=== PATIENT | female | born 1980 | race Caucasian/White ===

== ENCOUNTER → 2016-07-22 | Outpatient (CLI) | payer BC ==
[~2016-07-22] MED LIST: B-COTAB18 PO; CHOLCAP5 PO; PREN1TAB29 PO; PROM12.57 PO; RANI1TAB77
[2016-07-22 12:10] LABS: URINE APPEARANCE CLEAR (CLEAR); URINE BILIRUBIN NEG (NEG); URINE COLOR DK YELLOW; URINE EPITHELIAL CELL AUTO >30 /lpf (0-5); URINE NITRITE NEG (NEG); URINE PH 5.5 (4.5-7.5); URINE SPECIFIC GRAVITY 1.019 (1.000-1.030); UROBILINOGEN NEG (NEG)
[2016-07-22 12:13] LABS: MANUAL MICROSCOPIC REQUIRED? NO; REVIEW REQ? NO
[2016-07-22 12:24] LABS: HEMATOCRIT 30.4 % (37-47)
[2016-07-22 13:15] LABS: GTGD 50 Grams
== END | disposition home or self-care (01) ==
LOC: C.LAB1850 10:08
PROVIDERS: ATTEND Obstetrics & Gynecology
DX: Z34.83 Encounter for supervision of other normal pregnancy, third trimester (principal)

== ENCOUNTER → 2016-09-16 | Outpatient (CLI) | payer BC | END | disposition home or self-care (01) | LOC: C.LABSPEC 11:25 | PROVIDERS: ATTEND Obstetrics & Gynecology | DX: Z34.83 Encounter for supervision of other normal pregnancy, third trimester (principal) ==

== ENCOUNTER 2016-10-06 02:09 | Inpatient (IN) | payer BC ==
[~2016-10-06] VITALS: Ht 157.5 cm; Wt 68.5 kg
[~2016-10-06 02:09] MED LIST changes: -RANI1TAB77
[2016-10-06] MEDS ORDERED: LACTATED RINGER'S 1000ML 1,000 ML IV PRN (02:53)
[2016-10-06] MEDS ORDERED: LACTATED RINGER'S 1000ML 1,000 ML IV SCH (02:53)
[2016-10-06] MEDS ORDERED: RANI1TAB77 (02:56)
[2016-10-06 02:57] VITALS: Ht 157.5 cm; Wt 68.5 kg
[2016-10-06 03:24] LABS: HEMATOCRIT 33.3 % (37-47); MEAN CELL VOLUME 90.7 fL (80-100); MEAN CORPUSCULAR HEMOGLOBIN 30.2 pg (25-34); MEAN CORPUSCULAR HGB CONC 33.3 g/dl (32-36); PLATELET COUNT 161 K/uL (130-400); RED BLOOD COUNT 3.67 M/uL (4.2-5.4); WHITE BLOOD COUNT 7.86 K/uL (4.8-10.8)
[2016-10-06] MEDS ORDERED: CALCIUM CARBONATE 500 MG CHEWABLE ONE (03:43)
[2016-10-06] MEDS ORDERED: CALCIUM CARBONATE 500 MG CHEWABLE PO PRN (03:45)
[2016-10-06] MEDS ORDERED: OXYTOCIN 30 UNITS/500ML NSS IV ONE (06:30)
[2016-10-06] MEDS ORDERED: BENZOCAINE 20% AER SPR 82.5 GM CAN EXT PRN (07:00)
[2016-10-06] MEDS ORDERED: ACETAMINOPHEN/CODEINE 300/30MG TAB PO PRN (07:00)
[2016-10-06] MEDS ORDERED: RANITIDINE HCL 150 MG TAB PO PRN (07:00)
[2016-10-06] MEDS ORDERED: OXYTOCIN 30 UNITS/500ML NSS IV PRN (07:00)
[2016-10-06] MEDS ORDERED: HYDROCORTISONE ACETATE 25 MG SUPP PR PRN (07:00)
[2016-10-06] MEDS ORDERED: OXYTOCIN INJ 20 UNITS in LACTATED RINGER'S 1000ML 1,000 ML IV SCH (07:00)
[2016-10-06] MEDS ORDERED: SUPERCREAM 0.870 % 15GM JAR EXT PRN (07:00)
[2016-10-06] MEDS ORDERED: LANOLIN OINT EXT PRN ×2 (07:00)
[2016-10-06] MEDS ORDERED: DIPHTHERIA/TETANUS/PERTUSSIS 0.5 ML SYR/VIAL IM. ONE (07:00)
--- NOTE | 2016-10-06 08:03 | DELIVERY SUMMARY ---
DATE OF OPERATION: 10/06/2016 The patient dilated to complete and pushed to deliver a viable male with Apgars 8 and 9, via over small second degree perineal laceration. Mouth and nose bulb suctioned at the perineum. Shoulders and body delivered with ease. vigorous and crying at . Placenta delivered spontaneously and intact 3-vessel cord. Hemostasis achieved with dilute Pitocin and uterine massage. Cervix and sulci intact. Laceration repaired, after 1% local lidocaine anesthesia, in the usual fashion using 3-0 Vicryl. Mother and baby stable in recovery. EBL 300 mL. I attest to the content of the Intraoperative Record and any orders documented therein. Any exceptions are noted below. MTDD
[2016-10-06] MEDS: IBUPROFEN 600 MG TAB PO PRN ×3 (08:08→20:31)
[2016-10-06] MEDS: DOCUSATE SODIUM 100 MG CAP PO SCH ×2 (08:10→20:31)
[2016-10-06 09:35] VITALS: BP 107/69; PULSE 95; TEMP 36.8; O2SAT 98
[2016-10-06 11:10] VITALS: BP 99/65; PULSE 88; TEMP 36.6; O2SAT 97
[2016-10-06 15:30] VITALS: BP 119/72; PULSE 71; TEMP 36.6; O2SAT 99
[2016-10-06 20:30] VITALS: BP 98/64; PULSE 81; TEMP 36.4
[2016-10-07 00:05] VITALS: BP 99/61; PULSE 88; TEMP 36.8; O2SAT 99
[2016-10-07] MEDS: ACETAMINOPHEN 325 MG TAB PO PRN ×2 (00:12→15:26)
[2016-10-07 04:05] VITALS: BP 101/71; PULSE 98; TEMP 36.8
--- NOTE | 2016-10-07 07:05 | Progress Note ---
Subjective Oct 07, 2016. Subjective conversation w/ patient, physical exam, lab review Ambulation: ambulating normally Passing Gas: Yes Diet Tolerance: Regular Diet Lochia: Moderate Feeding Type: Bottle Feeding Pain: 6/10, improves with medication Comment: Patient was seen at the bedside. No acute event overnight. Review of Systems Constitutional: No fever Respiratory: No cough, No shortness of breath Cardiac: No chest pain Breast: No breast lump Abdomen: No nausea, No pain, No vomiting Female : No dysuria Denies headache Objective Vital Signs Date Time Temp Pulse Resp B/P Pulse Ox O2 Delivery O2 Flow Rate FiO2 10/07/16 04:05 36.8 98 16 101/71 10/07/16 00:05 36.8 88 18 99/61 Room Air 10/07/16 00:05 99 Room Air 10/06/16 20:30 36.4 81 20 98/64 Room Air 10/06/16 15:30 99 Room Air 10/06/16 15:30 36.6 71 18 119/72 99 Room Air 10/06/16 11:10 36.6 88 16 99/65 97 Room Air 10/06/16 09:35 98 Room Air 10/06/16 09:35 36.8 95 18 107/69 98 Room Air Physical Exam General Appearance: WELL-APPEARING, WD/WN Respiratory/Chest: chest non-tender, lungs clear, normal breath sounds Cardiovascular: regular rate, rhythm Abdomen: normal bowel sounds, soft, + tenderness (appropriate for ) Fundus: Firm, Relation to Umbilicus (2cm below) Extremities: no pedal edema, + calf tenderness (on the L) Medications Current Inpatient Medications Medications (Trade) Dose Ordered Sig/Brandin Route Start Time Stop Time Status Last Admin Dose Admin Calcium Carbonate (Tums Chew Tab) 500 mg Q6 PRN PO 10/06/16 03:45 11/05/16 03:44 10/06/16 15:23 500 MG Ranitidine HCl (zANTac TAB) 150 mg DAILY PRN PO 10/06/16 07:00 11/05/16 06:59 Oxytocin (Pitocin IV) 30 units UD PRN IV 10/06/16 07:00 11/05/16 06:59 Benzocaine (Dermoplast Aero Spr) 1 appln PRN PRN EXT 10/06/16 07:00 11/05/16 06:59 10/06/16 13:39 82.5 APPLN Cocaine HCl (Supercream 0.870% Cr) BID PRN EXT 10/06/16 07:00 10/20/16 06:59 10/07/16 00:12 15 GM Hydrocortisone Acetate (Anusol Hc Supp) 25 mg BID PRN CO 10/06/16 07:00 11/05/16 06:59 Lanolin (Lanolin Oint) PRN PRN EXT 10/06/16 07:00 11/05/16 06:59 Ibuprofen (Motrin Tab) 600 mg Q4H PRN PO 10/06/16 07:00 11/05/16 06:59 10/06/16 20:31 600 MG Acetaminophen (Tylenol Tab) 650 mg Q6H PRN PO 10/06/16 07:00 11/05/16 06:59 10/07/16 00:12 650 MG Acetaminophen/ Codeine Phosphate (Tylenol w/ Codeine #3 Tab) 1 tab Q4H PRN PO 10/06/16 07:00 11/05/16 06:59 Acetaminophen/ Codeine Phosphate (Tylenol w/ Codeine #3 Tab) 2 tab Q4H PRN PO 10/06/16 07:00 11/05/16 06:59 Docusate Sodium (coLACE CAP) 100 mg BID PO 10/06/16 08:00 11/05/16 07:59 10/06/16 20:31 100 MG Assessment and Plan Problem List Medical Problems: (1) Closed head injury Status: Acute (2) Concussion Status: Acute (3) Concussion Status: Acute (4) Hyperemesis gravidarum Status: Acute (5) Morning sickness Status: Acute (6) Vomiting Status: Acute Day#: 1 Continue Routine Care: A/P: This is a 36 y/o female, , s/p normal vaginal delivery. She is ambulating and clinically stable. Plan: - Vitals signs are reviewed and WNL (Tmax 36.8 ) - Hgb is --> 11.1 (10/06) - Blood type O+, GBS neg, Rubella Immune - Routine care - Encourage ambulation, monitor and control pain with medication as needed , continue with regular diet as tolerated and monitor lochia - Stool softeners and sitz bath recommended - Encourage breast feeding and educate about breast feeding Resident Physician Supervision Note: I interviewed and examined the patient. Discussed with Dr. Schneider and agree with findings and plan as documented in the note. Any exceptions or clarifications are listed here: [None] Documented By: Delfino Bain
[2016-10-07 07:30] VITALS: BP 94/64; PULSE 78; TEMP 36.6
[2016-10-07] MEDS: ACETAMINOPHEN/CODEINE 300/30MG TAB PO PRN ×2 (08:51→22:05)
[2016-10-07] MEDS: DOCUSATE SODIUM 100 MG CAP PO SCH ×2 (08:51→20:48)
[2016-10-07 16:30] VITALS: BP 98/70; PULSE 84; TEMP 36.4; O2SAT 99
[2016-10-08] VITALS: BP 89/63; PULSE 83; TEMP 36.6
--- NOTE | 2016-10-08 06:39 | Progress Note ---
Subjective Oct 08, 2016. Subjective conversation w/ patient, physical exam Ambulation: ambulating normally Voiding: no voiding problems Passing Gas: Yes Diet Tolerance: Regular Diet Lochia: Moderate Feeding Type: Bottle Feeding Pain: 5/10, improves with medication Comment: Patient was seen at the bedside. No acute event overnight. Review of Systems Constitutional: No chills, No fever Respiratory: No shortness of breath Cardiac: No chest pain Breast: No breast lump Abdomen: No nausea, No pain, No vomiting Female : No dysuria Denies headache Objective Vital Signs Date Time Temp Pulse Resp B/P Pulse Ox O2 Delivery O2 Flow Rate FiO2 10/08/16 00:00 36.6 83 16 89/63 Room Air 10/08/16 00:00 Room Air 10/07/16 16:30 99 Room Air 10/07/16 16:30 36.4 84 16 98/70 99 Room Air 10/07/16 07:30 Room Air 10/07/16 07:30 36.6 78 16 94/64 Physical Exam General Appearance: WELL-APPEARING, WD/WN Respiratory/Chest: chest non-tender, lungs clear, normal breath sounds Cardiovascular: regular rate, rhythm Abdomen: normal bowel sounds, non tender, soft Fundus: Firm, Relation to Umbilicus (2cm below) Extremities: non-tender, no pedal edema Medications Current Inpatient Medications Medications (Trade) Dose Ordered Sig/Brandin Route Start Time Stop Time Status Last Admin Dose Admin Calcium Carbonate (Tums Chew Tab) 500 mg Q6 PRN PO 10/06/16 03:45 11/05/16 03:44 10/06/16 15:23 500 MG Ranitidine HCl (zANTac TAB) 150 mg DAILY PRN PO 10/06/16 07:00 11/05/16 06:59 Oxytocin (Pitocin IV) 30 units UD PRN IV 10/06/16 07:00 11/05/16 06:59 Benzocaine (Dermoplast Aero Spr) 1 appln PRN PRN EXT 10/06/16 07:00 11/05/16 06:59 10/06/16 13:39 82.5 APPLN Cocaine HCl (Supercream 0.870% Cr) BID PRN EXT 10/06/16 07:00 10/20/16 06:59 10/07/16 00:12 15 GM Hydrocortisone Acetate (Anusol Hc Supp) 25 mg BID PRN MT 10/06/16 07:00 11/05/16 06:59 Lanolin (Lanolin Oint) PRN PRN EXT 10/06/16 07:00 11/05/16 06:59 Ibuprofen (Motrin Tab) 600 mg Q4H PRN PO 10/06/16 07:00 11/05/16 06:59 10/06/16 20:31 600 MG Acetaminophen (Tylenol Tab) 650 mg Q6H PRN PO 10/06/16 07:00 11/05/16 06:59 10/07/16 15:26 650 MG Acetaminophen/ Codeine Phosphate (Tylenol w/ Codeine #3 Tab) 1 tab Q4H PRN PO 10/06/16 07:00 11/05/16 06:59 10/07/16 22:05 1 TAB Acetaminophen/ Codeine Phosphate (Tylenol w/ Codeine #3 Tab) 2 tab Q4H PRN PO 10/06/16 07:00 11/05/16 06:59 Docusate Sodium (coLACE CAP) 100 mg BID PO 10/06/16 08:00 11/05/16 07:59 10/07/16 20:48 100 MG Assessment and Plan Problem List Medical Problems: (1) Closed head injury Status: Acute (2) Concussion Status: Acute (3) Concussion Status: Acute (4) Hyperemesis gravidarum Status: Acute (5) Morning sickness Status: Acute (6) Vomiting Status: Acute Day#: 2 Continue Routine Care: A/P: This is a 36 y/o female, , s/p normal vaginal delivery. She is ambulating and clinically stable to discharge. - Vital signs are reviewed and WNL (Tmax 36.8) - Last Hgb is 11.1 - Blood type O+, GBS neg, Rubella Immune - No signs of depression. - Routine care - Discussed resting, feeding, pain control, mastitis, control, follow up in 6 weeks and reasons to call sooner, if necessary. - Continue with pain medication as needed, and continue vitamins. - Encourage breast feeding and educate about breast feeding - Patient understands and keen for home. - Plan to discharge home Resident Physician Supervision Note: I interviewed and examined the patient. Discussed with Dr. Akter and agree with findings and plan as documented in the note. Any exceptions or clarifications are listed here: [None] Documented By: Dino Gonzalez
--- NOTE | 2016-10-08 06:40 | Discharge Instructions ---
Discharge Instructions Date of Service Oct 06, 2016. Admission Reason for Admission: LABOR Discharge Discharge Diagnosis / Problem: s/p normal vaginal delivery Discharge Goals Goal(s): Routine recovery after delivery Medications Continue Dispensed Medications: supercream, dermaplast, tucks, lansinoh Activity Recommendations Activity Limitations: as noted below . Instructions / Follow-Up Instructions / Follow-Up ACTIVITY RECOMMENDATIONS: * Gradual return to full activity over the next 2-3 weeks. * No lifting - nothing heavier than baby over the next 2-3 weeks. * Do not engage in vigorous exercise, sexual activity or sports until cleared by your physician. * Do not drive or operate any motorized equipment until cleared by your physician. * You may shower/bathe daily. MEDICATIONS: For discomfort or pain, you may use Acetaminophen (Tylenol), Ibuprofen (Advil), or Naproxen (Aleve) following the package directions. For constipation you may use Colace following the package directions. BREAST CARE: If you are not breast feeding: * Wear a supportive bra 24 hours a day for one to two weeks. * Avoid stimulating your breasts and nipples as much as possible during the first few weeks after delivery. * When taking a shower, have the warm water hit your back, not breasts. * When your breasts feel full, apply ice packs. Usually three to four times a day helps ease the discomfort. * Take a mild pain medication (Tylenol / Motrin) when you are uncomfortable. If breast feeding: * Use breast milk to lubricate nipples. Lansinoh cream may be used for sore nipples. You do not need to remove cream prior to breast feeding. If using a different brand of cream, check the label for directions regarding removal of cream prior to nursing. * Wear a supportive bra. * If having problems with breasts or breast feeding, call a advertising sales consultant or your health care provider. EPISIOTOMY CARE: After delivery, if you have an episiotomy (stitches), the following steps will ease discomfort and aid healing. * For the first 24 hours after delivery, place ice packs next to your episiotomy to help reduce swelling. * After the first 24 hour-period, sitz baths, either portable or in the tub, are suggested. A shower with a shower arm sprayed over the episiotomy may be comforting. * Brook care should be done after each voiding and bowel movement. Squirt warm water from a plastic bottle over the perineum (region of the body between the anus and urinary opening) and pat dry. * Use Dermoplast to ease discomfort. Shake container. [place] directly over the episiotomy. Place a Tucks on a clean sanitary pad next to your episiotomy. SPECIAL CARE INSTRUCTIONS: When you are discharged from the hospital, it is important for you to follow the instructions listed below: * During the first week at home, you should be able to care for yourself and your baby. In addition, the usual light household activities are encouraged. * Limit your activities to the way you feel. Do not try to clean the house or move furniture. Be sensible. * If you actively engage in sports and have done so up until the time of your delivery, you may resume these activities as soon as you feel able. This may take up to one month or even longer. Use good judgment. * Continue to take your vitamins for at least six weeks after the of your baby. * Your diet need not be limited unless you were on a special diet before your delivery. Breast-feeding mothers need around 2500 calories per day and at least 64-80 ounces of fluid per day (8 to 10 glasses). * You should eat foods from the four major food groups. Crash diets or fad diets are to be avoided. Eating lean meats, fresh fruits and vegetables, low-fat dairy products, high fiber foods and a regular exercise program, will help you get back to your pre- weight without putting your health at risk. * Constipation is sometimes a problem after delivery. Take a mild laxative as needed. If breast feeding, Milk of Magnesia is acceptable to use. You may use a suppository or Fleets enema if no episiotomy. * A daily shower or tub bath is suggested. Be sure to thoroughly and gently dry the perineum. * A bloody vaginal discharge will usually continue until around four weeks post . A small amount of bleeding may continue for as long as six weeks. Vaginal discharge changes from the bright red bleeding after delivery to pink then brownish and finally yellowish-pink before becoming white and disappearing. * Bleeding may increase with activity. Your first period may come in 4-8 weeks. If you are breast feeding, your period may be delayed even longer. * [place] (sex) can begin whenever both you and your partner feel comfortable and do not have any form of genital infection. It is recommended that you wait at least six weeks for internal and external healing to occur. If you have questions, please talk to your health care practitioner. A condom should be used to prevent infection and . * Foreplay, gentle intercourse and lubrication is very important the first several times to prevent pain. A water-based lubricant such as K-Y jelly or Astroglide may be used. * If you have RH negative blood and your baby is RH positive, you will receive RHOGAM by injection prior to discharge. The nurse will give you a card to keep with you that has the date and place that you received RHOGAM after delivery. * During your care, you had a Rubella screen done to check for the presence of rubella antibodies in your blood. If your test was negative, you will receive a Rubella vaccine prior to discharge. This vaccine may cause a fever, soreness at the injection site and flu-like symptoms. If these symptoms persist, notify your health care practitioner. is not advised for one month after a Rubella vaccine. * Verbalizes understanding of car seat law as reviewed with patient nursing. * Car Seat hand-out given and reviewed with patient by nursing. * Shaken baby information reviewed with patient by nursing. Call you doctor if: * Heavy bleeding (saturating several pads an hour) or passing clots the size of your fist. * A fever >101 degrees F (38.3 degrees C) on two occasions four hours apart and /or chills. * Unusual pain in the pelvic or vaginal areas. * "Baby Blues" lasting longer than two weeks. If you have any questions or concerns, call your health care practitioner at . FOLLOW UP VISIT: * Please call the office at to schedule a 6 week examination. It is important you keep this appointment. It is important for you to make arrangements for either yearly or twice yearly check-ups thereafter. Current Hospital Diet Patient's current hospital diet: Regular OB Diet Discharge Diet Recommended Diet: Regular Diet Pending Studies Studies pending at discharge: no Medical Emergencies . Who to Call and When: Medical Emergencies: If at any time you feel your situation is an emergency, please call [phone] immediately. . Non-Emergent Contact Non-Emergency issues call your: Fish Warden Call Non-Emergent contact if: you have a fever, temperature is above 101 . . "Provider Documentation" section prepared by Deven Schneider. VTE Core Measure Inpt VTE Proph given/why not?: Treatment not indicated
[2016-10-08 08:00] VITALS: BP 93/62; PULSE 90; TEMP 36.9; O2SAT 97
[2016-10-08] MEDS: DOCUSATE SODIUM 100 MG CAP PO SCH (08:20)
[2016-10-08 11:00] VITALS: BP_DIAS 62; PULSE 90; TEMP 36.9
== END 2016-10-08 12:10 | disposition home or self-care (01) | DRG 775 ==
LOC: C.LD 02:09 → C.OPB 02:09 → C.LD 02:55 → C.OPB 02:55 → C.OBG 09:20 → EDSTATUS 10-14 02:08
PROVIDERS: ADMIT Obstetrics & Gynecology; ATTEND Obstetrics & Gynecology
PROC: 0KQM0ZZ Repair Perineum Muscle, Open Approach (ICD-10-PCS; principal; 2016-10-06)
PROC: 10E0XZZ Delivery of Products of Conception, External Approach (ICD-10-PCS; principal; 2016-10-06)
DX: O42.02 Full-term premature rupture of membranes, onset of labor within 24 hours of rupture (principal); O70.1 Second degree perineal laceration during delivery; Z37.0 Single live birth; O99.62 Diseases of the digestive system complicating childbirth; K21.9 Gastro-esophageal reflux disease without esophagitis; Z3A.38 38 weeks gestation of pregnancy

== ENCOUNTER → 2016-11-24 | Outpatient (CLI) | payer BC ==
[~2016-11-24] MED LIST changes: -PROM12.57 PO; +RANI1TAB77
== END | disposition home or self-care (01) ==
LOC: C.LAB1850 14:56
PROVIDERS: ATTEND Obstetrics & Gynecology
DX: R61 Generalized hyperhidrosis (principal)

== ENCOUNTER → 2016-12-03 | Outpatient (CLI) | payer BC ==
--- NOTE | 2016-12-03 14:19 | DIAGNOSTIC IMAGING REPORT ---
Ultrasound right foot RIGHT EXTREMITY NONVASCULAR LIMITED CLINICAL HISTORY: R GREAT TOE/FOOT PAIN/BOTTOM FOOT NEUROMA Right nodule TECHNIQUE: Survey ultrasound COMPARISON STUDY: None FINDINGS: Ultrasound evaluation of the soft tissue structures of foot shows no evidence for abnormal mass or collection. IMPRESSION: Normal study. Electronically signed by: Fan Pham M.D. 12/03/2016 2:17 PM Dictated Date/Time: 12/03/2016 2:16 PM
== END | disposition home or self-care (01) ==
LOC: C.ULTR 13:32
PROVIDERS: ATTEND Family Medicine
DX: M79.674 Pain in right toe(s) (principal)

== ENCOUNTER → 2016-12-30 | Outpatient (CLI) | payer BC ==
[2016-12-30 12:21] LABS: BASO % 0.4 %; BASO ABS # 0.02 K/uL (0-0.2); COMPLETE YES; EOS % 0.7 %; HEMATOCRIT 37.5 % (37-47); IG% 0.2 %; LYMPH % 36.8 %; LYMPH ABS # 2.07 K/uL (1.2-3.4); MEAN CELL VOLUME 92.1 fL (80-100); MEAN CORPUSCULAR HEMOGLOBIN 29.5 pg (25-34); MONO % 7.1 %; NEUT % 54.8 %; PLATELET COUNT 245 K/uL (130-400); RED BLOOD COUNT 4.07 M/uL (4.2-5.4); WHITE BLOOD COUNT 5.62 K/uL (4.8-10.8)
== END | disposition home or self-care (01) ==
LOC: C.LAB1850 09:50
PROVIDERS: ATTEND Obstetrics & Gynecology
DX: N92.0 Excessive and frequent menstruation with regular cycle (principal)

== ENCOUNTER → 2017-02-17 | Outpatient (CLI) | payer BC | END | disposition home or self-care (01) | LOC: C.RDSM 09:00 | PROVIDERS: ATTEND Physical Medicine & Rehabilitation Sports Medicine | DX: M25.561 Pain in right knee (principal) ==

== ENCOUNTER → 2017-07-07 | Outpatient (CLI) | payer OTHER ==
[~2017-07-07] MED LIST changes: +GADAVIST IV PRN
--- NOTE | 2017-07-07 14:10 | DIAGNOSTIC IMAGING REPORT ---
MRI OF THE BRAIN WITHOUT AND WITH IV CONTRAST CLINICAL HISTORY: R20.2 Paresthesias COMPARISON STUDY: Head CT dated 04/14/2016, MRI the brain dated 02/07/2015 TECHNIQUE: MRI of the brain was performed from the vertex to the skull base utilizing various T1 and T2 weighted sequences. Following the IV administration of 6 mL of Gadavist contrast, additional enhanced images were obtained. FINDINGS: Sagittal T1, axial diffusion, proton density and T2 weighted axial, coronal FLAIR, and pre and post axial T1-weighted images were acquired. These were supplemented with post gadolinium coronal T1 weighted images. No intra or extra-axial mass lesions are visualized. Axial diffusion-weighted images reveal no evidence of acute or subacute infarction. There is no evidence of ventricular dilatation. Proton density T2-weighted and FLAIR images reveal no significant intraparenchymal signal abnormalities. There are no abnormal flow voids. There is a stable tiny left frontoparietal developmental venous anomaly. There are postsurgical changes within the paranasal sinuses. IMPRESSION: Stable tiny left frontoparietal developmental venous anomaly. Otherwise unremarkable MRI of the brain. Electronically signed by: Marco Call M.D. 07/07/2017 2:09 PM Dictated Date/Time: 07/07/2017 2:06 PM
== END | disposition home or self-care (01) ==
PROVIDERS: ATTEND Physician Assistant
DX: R20.2 Paresthesia of skin (principal)

== ENCOUNTER → 2017-08-02 | Outpatient (CLI) | payer OTHER ==
[~2017-08-02] VITALS: Ht 154.9 cm; Wt 66.5 kg
[~2017-08-02] MED LIST changes: -GADAVIST IV PRN
[2017-08-02 14:22] VITALS: BP 102/67; PULSE 93; Ht 154.9 cm; Wt 66.5 kg
== END | disposition home or self-care (01) ==
LOC: C.NEUR 13:50
PROVIDERS: ATTEND Physician Assistant Medical
DX: R53.83 Other fatigue (principal); G47.19 Other hypersomnia; G47.00 Insomnia, unspecified

== ENCOUNTER → 2017-09-06 | Outpatient (CLI) | payer OTHER | END | disposition home or self-care (01) | LOC: C.NEUR 09:35 | PROVIDERS: ATTEND Physician Assistant Medical | DX: G47.19 Other hypersomnia (principal); R53.83 Other fatigue; G47.00 Insomnia, unspecified ==

== ENCOUNTER → 2017-09-19 | Outpatient (CLI) | payer OTHER ==
[~2017-09-19] MED LIST changes: +BIOT1CAP8 PO; +ONDA4TAB10 SL
== END | disposition home or self-care (01) ==
LOC: C.RDSM 08:00
PROVIDERS: ATTEND Physical Medicine & Rehabilitation Sports Medicine
DX: M79.672 Pain in left foot (principal)

== ENCOUNTER 2017-09-25 10:30 | Emergency (ER) | payer OTHER ==
[~2017-09-25] VITALS: Ht 154.9 cm; Wt 60.3 kg
[~2017-09-25 10:30] MED LIST changes: -BIOT1CAP8 PO; -ONDA4TAB10 SL
[2017-09-25 10:44] VITALS: TEMP 36.9; Ht 154.9 cm; Wt 60.3 kg
[2017-09-25] MEDS ORDERED: ONDANSETRON INJ 2 MG/ML 2 ML VIAL ONE (11:04)
[2017-09-25] MEDS ORDERED: SODIUM CHLORIDE 0.9% 1000ML 1,000 ML IV STA ×2 (11:06)
[2017-09-25] MEDS ORDERED: ONDANSETRON INJ 2 MG/ML 2 ML VIAL IV STA ×2 (11:06→12:34)
[2017-09-25 11:14] LABS: BASO % 0.2 %; BASO ABS # 0.02 K/uL (0-0.2); HEMATOCRIT 41.7 % (37-47); HEMOGLOBIN 13.6 g/dL (12.0-16.0); IG# 0.02 K/uL (0.00-0.02); LYMPH % 3.2 %; LYMPH ABS # 0.36 K/uL (1.2-3.4); MEAN CELL VOLUME 90.5 fL (80-100); MEAN CORPUSCULAR HEMOGLOBIN 29.5 pg (25-34); MEAN CORPUSCULAR HGB CONC 32.6 g/dl (32-36); MEAN PLATELET VOLUME 10.5 fL (7.4-10.4); MONO % 3.3 %; MONO ABS # 0.37 K/uL (0.11-0.59); NEUT % 93.1 %; PLATELET COUNT 245 K/uL (130-400); RED CELL DISTRIBUTION WIDTH CV 13.6 % (11.5-14.5); WHITE BLOOD COUNT 11.17 K/uL (4.8-10.8)
[2017-09-25 11:40] LABS: CALCIUM 8.8 mg/dl (8.5-10.1); CREATININE 1.01 mg/dl (0.60-1.20); POTASSIUM 3.9 mmol/L (3.5-5.1)
[2017-09-25] MEDS ORDERED: BIOT1CAP8 PO (12:04)
[2017-09-25] MEDS ORDERED: KETOROLAC TROMETHAMINE 15 MG/ML VIAL IV STA (13:32)
[2017-09-25] MEDS ORDERED: ONDA4TAB10 SL (14:12)
--- NOTE | 2017-09-25 14:13 | EMERGENCY ROOM VISIT NOTE ---
History First contact with patient: 10:49 Chief Complaint: VOMITING Stated Complaint: VOMITING,PASSING OUT,DEHYDRATION Nursing Triage Summary: pt reports intermittent fever, dehydration, passing out and vomiting/diarrhea started at 2300 last night. pt reports legs hurt also History of Present Illness The patient is a 36 year old female who presents to the Emergency Room with complaints of vomiting and diarrhea. The patient reports that yesterday evening just before bed, she developed nausea, vomiting and diarrhea. She has had multiple episodes of vomiting and diarrhea since then. She has been unable to keep anything down. She states that her was ill with similar symptoms 1 day ago. She states that her legs are sore. She does state that when she has been standing up, she becomes dizzy and feels like she is going to pass out. She did have one episode of passing out. She states that this is not unusual for her, as her blood pressure runs low and she has had multiple episodes like this in the past. She denies any chest pain or shortness of breath. He reports some abdominal discomfort, but no focal abdominal pain. She denies any fever. Review of Systems A complete 10 point review of systems was reviewed with the patient with pertinent positives and negatives as per history of present illness. All else were negative. Past Medical/Surgical History Surgical Problems: (1) H/O cardiac radiofrequency ablation (2) History of dilatation and curettage (3) S/P sinus surgery (4) S/P wisdom tooth extraction (5) Status post dilation and curettage Family History Cancer Gallbladder disease Hypertension Social History Smoking Status: Never Smoker Alcohol Use: none Marital Status: Housing Status: lives with family Occupation Status: employed Current/Historical Medications Scheduled Biotin (Biotin), 1 CAP PO DAILY Cholecalciferol (Vitamin D3), 5,000 UNITS PO DAILY Ondasetron Odt (Zofran Odt), 4 MG SL Q6H Physical Exam Vital Signs Date Time Temp Pulse Resp B/P (MAP) Pulse Ox O2 Delivery O2 Flow Rate FiO2 09/25/17 14:33 97 16 100/61 97 09/25/17 12:34 100 18 102/67 100 Room Air 09/25/17 10:44 36.9 107 18 111/68 97 Room Air Physical Exam VITALS: Vitals are noted on the nurse's note and reviewed by myself. Vital signs stable. GENERAL: This is a 36-year-old female, in no acute distress, nondiaphoretic, well-developed well-nourished. SKIN: The skin was without rashes. EARS: External auditory canals clear, tympanic membranes pearly villagomez without erythema or effusion bilaterally. EYES: Pupils equal round and reactive to light and accommodation. MOUTH: Mucous membranes moist. Tonsils are not enlarged. Pharynx without erythema or exudate. HEART: Regular rate and rhythm without murmurs gallops or rubs. LUNGS: Clear to auscultation bilaterally without wheezes, rales or rhonchi. ABDOMEN: Positive bowel sounds x 4. Soft, mild generalized tenderness to palpation. No guarding or rebound tenderness. NEURO: Patient was alert and oriented to person place and time. Medical Decision & Procedures Laboratory Results 09/25/17 10:55 Red Blood Count 4.61, Mean Corpuscular Volume 90.5, Mean Corpuscular Hemoglobin 29.5, Mean Corpuscular Hemoglobin Concent 32.6, Mean Platelet Volume 10.5, Neutrophils (%) (Auto) 93.1, Lymphocytes (%) (Auto) 3.2, Monocytes (%) (Auto) 3.3, Eosinophils (%) (Auto) 0.0, Basophils (%) (Auto) 0.2, Neutrophils # (Auto) 10.40, Lymphocytes # (Auto) 0.36, Monocytes # (Auto) 0.37, Eosinophils # (Auto) 0.00, Basophils # (Auto) 0.02 09/25/17 10:55 Test 09/25/17 10:55 09/25/17 11:46 White Blood Count 11.17 K/uL (4.8-10.8) Red Blood Count 4.61 M/uL (4.2-5.4) Hemoglobin 13.6 g/dL (12.0-16.0) Hematocrit 41.7 % (37-47) Mean Corpuscular Volume 90.5 fL (80-100) Mean Corpuscular Hemoglobin 29.5 pg (25-34) Mean Corpuscular Hemoglobin Concent 32.6 g/dl (32-36) Platelet Count 245 K/uL (130-400) Mean Platelet Volume 10.5 fL (7.4-10.4) Neutrophils (%) (Auto) 93.1 % Lymphocytes (%) (Auto) 3.2 % Monocytes (%) (Auto) 3.3 % Eosinophils (%) (Auto) 0.0 % Basophils (%) (Auto) 0.2 % Neutrophils # (Auto) 10.40 K/uL (1.4-6.5) Lymphocytes # (Auto) 0.36 K/uL (1.2-3.4) Monocytes # (Auto) 0.37 K/uL (0.11-0.59) Eosinophils # (Auto) 0.00 K/uL (0-0.5) Basophils # (Auto) 0.02 K/uL (0-0.2) RDW Standard Deviation 45.0 fL (36.4-46.3) RDW Coefficient of Variation 13.6 % (11.5-14.5) Immature Granulocyte % (Auto) 0.2 % Immature Granulocyte # (Auto) 0.02 K/uL (0.00-0.02) Anion Gap 8.0 mmol/L (3-11) Est Creatinine Clear Calc Drug Dose 65.4 ml/min Estimated GFR () 84.1 Estimated GFR (Non- 72.6 BUN/Creatinine Ratio 14.4 (10-20) Calcium Level 8.8 mg/dl (8.5-10.1) Urine Color YELLOW Urine Appearance CLEAR (CLEAR) Urine pH 5.0 (4.5-7.5) Urine Specific Crawford 1.029 (1.000-1.030) Urine Protein NEG (NEG) Urine Glucose (UA) NEG (NEG) Urine Ketones NEG (NEG) Urine Occult Blood NEG (NEG) Urine Nitrite NEG (NEG) Urine Bilirubin NEG (NEG) Urine Urobilinogen NEG (NEG) Urine Leukocyte Esterase NEG (NEG) Medications Administered Medications (Trade) Dose Ordered Sig/Brandin Route Start Time Stop Time Status Last Admin Dose Admin Ondansetron HCl (Zofran Inj) 4 mg STK-MED ONCE .ROUTE 09/25/17 11:04 09/25/17 11:05 DC 09/25/17 11:04 4 MG Sodium Chloride 1,000 ml @ 999 mls/hr Q1H1M STAT IV 09/25/17 11:06 09/25/17 12:06 DC 09/25/17 11:06 999 MLS/HR Sodium Chloride 1,000 ml @ 999 mls/hr Q1H1M STAT IV 09/25/17 11:06 09/25/17 12:06 DC 09/25/17 11:06 999 MLS/HR Ondansetron HCl (Zofran Inj) 4 mg NOW STAT IV 09/25/17 12:34 09/25/17 12:35 DC 09/25/17 12:34 4 MG Ketorolac Tromethamine (Toradol Inj) 15 mg NOW STAT IV 09/25/17 13:32 09/25/17 13:34 DC 09/25/17 13:39 15 MG Ondansetron HCl (ZOFRAN ODT 4MG Home Pack) 1 homepack UD ONCE PO 09/25/17 14:15 09/25/17 14:16 DC 09/25/17 14:15 1 HOMEPACK ED Course The patient was evaluated as above. Labs were drawn and IV access was obtained. Patient was medicated with 4 mg Zofran and 1 L normal saline solution. The patient was rechecked. She is feeling much better but is still slightly nauseous. She was given an additional 4 mg of Zofran and another 1 L normal saline solution. The patient was rechecked and was able to tolerate p.o. fluids without difficulty. She feels ready for discharge. Discharge instructions were reviewed with the patient. The patient verbalized understanding of my assessment and treatment plan and was discharged home in good condition. Medical Decision Differential diagnosis includes gastroenteritis, colitis, foodborne illness, viral illness, among others. The patient is a 36-year-old female who presents today complaining of nausea, vomiting and diarrhea. Labs revealed a very mild leukocytosis, likely secondary to vomiting. Labs were otherwise unremarkable, with no anemia or concerning electrolyte abnormalities. Patient was given IV hydration and antiemetics and felt much better after this treatment. Other family members have been ill with similar symptoms. She will be given Zofran to take at home and conservative measures were discussed. Based on the patient's presentation and work up, I feel the patient is stable for outpatient treatment. The patient was educated to return to the emergency department for any worsening of their current condition or new/concerning symptoms. She will follow up with her PCP. Medication Reconcilliation Current Medication List: was personally reviewed by me Blood Pressure Screening Patient's blood pressure: Normal blood pressure Impression Primary Impression: Nausea, vomiting, and diarrhea Departure Information Dispostion Home / Self-Care Condition GOOD Prescriptions Ondasetron Odt (ZOFRAN ODT) 4 Mg Tab 4 MG SL Q6H for Nausea, #12 TAB Prov: Hansa Green .LILY 09/25/17 Referrals Erlinda Art D.O. (PCP) Patient Instructions My [facility] [address] Additional Instructions You have been prescribed Zofran to be used for any nausea or vomiting. Take as prescribed. For pain control, you can use the following [id number] medicines (if >12 yo): - Regular strength (325mg/tab) Tylenol (acetaminophen) 2 tabs every 4-6 hours as needed. Do not exceed 12 tablets in a 24 hour period. Avoid taking more than 4 grams (4000 mg) of Tylenol per day. This includes any other sources of acetaminophen you may take on a regular basis. - Regular strength (200 mg/tab) Advil (ibuprofen) 1-2 tabs every 4-6 hours as needed. Do not exceed a dose of 3200 mg per day. Drink frequent small sips of fluids to stay well-hydrated. When you are starting to feel better, you may try some bland foods such as bananas, rice, applesauce, toast or crackers. You may then advance her diet as tolerated. Follow-up with your primary care provider or return here if you have persistent or worsening symptoms. Return here if you have fevers, worsening symptoms of dehydration, or focal abdominal pain.
[2017-09-25] MEDS ORDERED: ONDANSETRON HOME PACK 4MG OD TAB PO ONE (14:15)
[2017-09-25 14:33] VITALS: BP 100/61; PULSE 97; O2SAT 97
== END 2017-09-25 14:33 | disposition home or self-care (01) ==
LOC: C.EDB 10:31 → C.EDC 14:33
DX: R11.2 Nausea with vomiting, unspecified (principal); R19.7 Diarrhea, unspecified; Z80.9 Family history of malignant neoplasm, unspecified; Z83.79 Family history of other diseases of the digestive system; Z82.49 Family history of ischemic heart disease and other diseases of the circulatory system; Z79.899 Other long term (current) drug therapy